=== PATIENT | female | born 1960 | race Caucasian/White ===

== ENCOUNTER 2020-12-14 17:02 | Outpatient (CLI) | payer OTHER, SELFPAY ==
--- NOTE | ~2020-12-14 | MM_ITS ---
EXAMINATION: MM screening [facility] BI w trang HISTORY: Screening mammogram TECHNIQUE: Craniocaudal and mediolateral oblique 3-D tomosynthesis images were obtained and synthetic 2-D images were generated. CAD analysis was submitted and interpreted. COMPARISON: 08/13/2018, 04/19/2017, 03/02/2016 BREAST PARENCHYMAL COMPOSITION: The breasts are almost entirely fatty. FINDINGS: Scattered benign-appearing calcifications are present. There is no evidence of suspicious m ass, calcification, or architectural distortion to suggest malignancy in either breast. There has bee n no suspicious interval change. IMPRESSION: 1. No mammographic evidence of malignancy. 2. Recommend routine screening mammography in one year. BI-RADS Category 2: Benign finding(s). Reviewed, dictated and finalized at location A.
== END 2020-12-14 17:03 | disposition home or self-care (01) ==
PROVIDERS: PCP Family Medicine Adolescent Medicine; Visit Provider Family Medicine Adolescent Medicine
DX: Z12.31 Encounter for screening mammogram for malignant neoplasm of breast (principal)
CPT/HCPCS: 77063; 77067

== ENCOUNTER → 2021-02-24 09:06 | Outpatient (CLI) | payer OTHER, SELFPAY ==
[2021-02-24 20:00] LABS: SARS-CoV-2 RNA PCR Negative
== END ==
PROVIDERS: PCP Family Medicine Adolescent Medicine; Visit Provider Physician Assistant
DX: R68.89 Other general symptoms and signs (principal); Z20.822 Contact with and (suspected) exposure to COVID-19
CPT/HCPCS: C9803; U0003; U0005

== ENCOUNTER → 2021-04-14 02:37 | Outpatient (CLI) | payer OTHER, SELFPAY ==
[2021-04-14 18:08] LABS: SARS-CoV-2 RNA PCR Negative
== END ==
PROVIDERS: PCP Family Medicine Adolescent Medicine; Visit Provider Family Medicine Adolescent Medicine
DX: Z20.822 Contact with and (suspected) exposure to COVID-19 (principal)
CPT/HCPCS: C9803; U0003; U0005

== ENCOUNTER → 2022-02-01 12:23 | Outpatient (CLI) | payer OTHER, SELFPAY ==
--- NOTE | ~2022-02-01 | XR_ITS ---
EXAMINATION: XR wrist RT w scaphoid DATE: 02/01/2022 12:39 INDICATION: Radial sided right wrist pain post fall 2 weeks prior. TECHNIQUE: Posteroanterior, ulnar deviation, navicular, oblique, and lateral views of the right wrist were obtained. COMPARISON: none FINDINGS: There is mildly impacted intra-articular fracture involving the dorsal aspect of the radial styloid p rocess with 1-2 mm lucent fracture gap and 1 mm incongruity seen along the articular surface on the l ateral projection. Otherwise normal alignment with no other fractures identified. Specifically no sca phoid fracture. Mild osteoarthritis at the radiocarpal first carpometacarpal and a few of the metacar pophalangeal joints. IMPRESSION: 1. Mildly impacted intra-articular fracture involving the dorsal aspect of the radial styloid process . Reviewed, dictated and finalized at location A. IMPRESSION: 1. Mildly impacted intra-articular fracture involving the dorsal aspect of the radial styloid process.
== END ==
PROVIDERS: PCP Family Medicine Adolescent Medicine; Visit Provider Family Medicine Adolescent Medicine
DX: S52.511A Displaced fracture of right radial styloid process, initial encounter for closed fracture (principal); M19.041 Primary osteoarthritis, right hand; M19.031 Primary osteoarthritis, right wrist
CPT/HCPCS: 73110

== ENCOUNTER → 2022-03-10 09:26 | Outpatient (CLI) | payer OTHER, SELFPAY ==
--- NOTE | ~2022-03-10 | XR_ITS ---
EXAMINATION: XR wrist RT 2V INDICATION: Right wrist fracture follow-up TECHNIQUE: Two views of the right wrist are obtained. COMPARISON: 02/01/2022 FINDINGS: The previously described oblique fracture of the radial styloid process is again seen. Ther e is increased calcified callus at the fracture site and the fracture is less visible than on the com parison examination. No additional healing fracture is identified. There is mild osteoarthritis of th e triscaphe and first carpometacarpal joints. Soft tissue swelling has improved. IMPRESSION: 1. Radial styloid process fracture with routine healing. Reviewed, dictated and finalized at location B.
== END ==
PROVIDERS: PCP Family Medicine Adolescent Medicine; Visit Provider Family Medicine Adolescent Medicine
DX: S52.511D Displaced fracture of right radial styloid process, subsequent encounter for closed fracture with routine healing (principal)
CPT/HCPCS: 73100

== ENCOUNTER → 2023-06-14 14:15 | Outpatient (CLI) | payer OTHER, SELFPAY ==
--- NOTE | ~2023-06-14 | MR_ITS ---
EXAMINATION: MR lumbar spine wo con DATE: 06/14/2023 15:12 INDICATION: Worsening bilateral sciatica. TECHNIQUE: Magnetic resonance imaging (MRI) of the lumbar spine was performed without intravenous con trast. COMPARISON: Lumbar spine MRI 06/19/2018 FINDINGS: L5 is a transitional segment. There is 8 mm anterolisthesis of L4 on L5 and 4 mm anterolist hesis of L5 on S1. There are chronic bilateral L4 pars defects. There are chronic compression fractur es of L5 and S1 with 2/5 and less than 1/5 loss of height, respectively. There is mildly decreased di sc height at L2-L3 and L3-L4. There is severely decreased disc height at L4-L5 and L5-S1. The distal spinal cord signal intensity is normal. The conus medullaris is at L1-L2. The following disc levels a re specifically discussed: L1-L2: The disc does not extend beyond the endplate margin. There is mild bilateral facet joint osteo arthritis. There is no neural foraminal stenosis. There is no central canal stenosis. L2-L3: The disc is bulging and has an annular fissure. There is severe bilateral facet joint osteoart hritis. There is mild bilateral neural foraminal stenosis. There is mild central canal stenosis. L3-L4: The disc is bulging. There is severe bilateral facet joint osteoarthritis. There is mild later al neural foraminal stenosis. There is mild central canal stenosis. L4-L5: The disc does not extend beyond the endplate margin. There is moderate bilateral facet joint o steoarthritis. There is moderate bilateral neural foraminal stenosis. There is mild central canal payam nosis. L5-S1: The disc does not extend beyond the endplate margin. There is moderate bilateral facet joint o steoarthritis. There is mild bilateral neural foraminal stenosis. There is no central canal stenosis. IMPRESSION: 1. Chronic bilateral L4 pars defects with grade 2 anterolisthesis of L4 on L5, stable from 06/19/2018 . 2. Severe lumbar spondylosis, mildly worsened from 06/19/2018. Reviewed, dictated and finalized at location A. FITTER IMPRESSION: 1. Chronic bilateral L4 pars defects with grade 2 anterolisthesis of L4 on L5, stable from 06/19/2018. 2. Severe lumbar spondylosis, mildly worsened from 06/19/2018.
== END ==
PROVIDERS: PCP Family Medicine Adolescent Medicine; Visit Provider Family Medicine Adolescent Medicine
DX: M43.06 Spondylolysis, lumbar region (principal); M54.32 Sciatica, left side; M54.31 Sciatica, right side
CPT/HCPCS: 72148

== ENCOUNTER 2024-10-24 14:46 | Outpatient (CLI) | payer MEDICARE, OTHER, SELFPAY ==
--- NOTE | ~2024-10-24 | MM_ITS ---
EXAMINATION: MM screening shubham BI w trang HISTORY: Screening TECHNIQUE: Craniocaudal and mediolateral oblique 3-D tomosynthesis images were obtained and synthetic 2-D images were generated. CAD analysis was submitted and interpreted. COMPARISON: Comparison to multiple prior studies sequentially, with oldest reviewed study dated 02/26. BREAST PARENCHYMAL COMPOSITION: Not dense: There are scattered areas of fibroglandular density. FINDINGS: There is no evidence of suspicious mass, calcification, or architectural distortion to sugg est malignancy in either breast. There has been no suspicious interval change. IMPRESSION: 1. No mammographic evidence of malignancy. 2. Recommend routine screening mammography in one year. BI-RADS Category 1: Negative Reviewed, dictated and finalized at location A.
--- OUTSIDE RECORDS SUMMARY | 2024-10-24 14:52 | XMS_ITS | Referral Summary ---
Author Organization [facility] Address [address] [facility] [place] [address] Care Team Providers Care Freight Checker Name Role Phone Roberto Majano MD Primary Care Prov ider Mickie Munroe MD Unavailable [phone] Tj Galicia DO Unavailable [phone] Salina Hassan Unavailable [phone] Encounters Date Type Department Care Team Description 09/24/2024 8:48 AM CDT - 09/24/2024 11:59 PM CDT Hospital Encounter [facility] Cardiac Testing [address] [place] [id number] Nonrheumatic aortic (valve) stenosis Discharge Disposition: Discharge to home or self care 09/24/2024 7:33 AM CDT - 09/24/2024 11:59 PM CDT Hospital Encounter [facility] MRI [facility] [place] [address] Spinal stenosis of cervical region; Spinal stenosis of lumbar region, unspecified whether neurogenic claudication present; Osteopenia, unspecified location Discharge Disposition: Discharge to home or self care 09/16/2024 3:15 PM CDT Telemedicine [facility] Neurosurgery [facility] Medical [facility] Building [address] [place] [address] Aristeo Cordova DO Obesity (BMI 30-39.9) (Primary Dx); Spinal stenosis of cervical region; Spinal stenosis of lumbar region, unspecified whether neurogenic claudication present 09/10/2024 3:40 PM CDT - 09/10/2024 11:59 PM CDT Hospital Encounter [facility] 1 [facility] [address] [facility] [address] [place] [address] Spinal stenosis of cervical region; Spinal stenosis of lumbar region, unspecified whether neurogenic claudication present; Osteopenia, unspecified location Discharge Disposition: Discharge to home or self care 08/25/2024 3:30 PM PAPER SAMPLE CLERK Therapy [facility] OP Physical Therapy [address] [facility] [address] [place] [address] Spinal stenosis of cervical region; Spinal stenosis of lumbar region, unspecified whether neurogenic claudication present; Osteopenia, unspecified location 08/14/2024 Orders Only [facility] Minimally Invasive Surgery [address] [facility] Medical [facility] Building [address] [place] [id number] Aristeo Hope MD 08/14/2024 [facility] Minimally Invasive Surgery [address] [place] [address] [facility] 12th Floor, [place] [address] Aristeo Hope MD Med Refill from Last 3 Months Allergies Active Allergy Reactions Criticality Noted Date Comments Morphine Hives,Swelling,Rash Medium Tolerates oxycodone and hydromorphone Penicillins Hives,Swelling,Rash Medium Medications busPIRone (BUSPAR) 15 mg tabletIndications :Generalized Anxiety Disorder Take 1 tablet (15 mg total) by mouth 2 (two) times a day 8am and 8pm Active escitalopram (LEXAPRO) 20 mg tabletIndications :Anxiety with Depression Take 1 tablet (20 mg total) by mouth every morning 8am Active miconazole 2 % powder Apply topically 2 (two) times a day 70 g 023 Active Additional Information Patient taking differently: 1 ApplicationtopicalAs needed, skin yeast infections, Informant: Self, Reported on 01/17/2024 ergocalciferol (VITAMIN D) 50,000 unit capsule Take 1 capsule (50,000 Units total) by mouth once a week 4 capsule 023 Active Additional Information Patient taking differently:50,000 Units oral Weekly,On Sundays, Indications: Vitamin D Deficiency, Informant: Self, Reported on 01/17/2024 albuterol HFA (PROVENTIL HFA,VENTOLIN HFA,PROAIR HFA) 90 mcg/actuation inhaler Inhale 2 puffs every 6 (six) hours as needed for wheezing or shortness of breath 023 Active methocarbamoL (ROBAXIN) 500 mg tabletIndications :Muscle Spasm Take 2 tablets (1,000 mg total) by mouth 4 (four) times a day 8am, 2pm, 8pm, 2am 023 Active magnesium oxide (MAG-OX) 400 mg (241.3 mg elemental magnesium) tablet Take 1 tablet (400 mg total) by mouth 2 (two) times a day 60 tablet 1 023 Active Additional Information Patient taking differently:400 mg oral 2 times daily,Indications: For supplement, Informant: Self, Reported on 01/17/2024 naloxone (NARCAN) 4 mg/actuation spray,non-aerosol Administer 1 spray into affected nostril(s) as needed for opioid reversal Call 911. Administer a single spray in one nostril. Repeat every 3 minutes as needed if no or minimal response. 2 each 2 023 Active traZODone (DESYREL) 100 mg tablet Take 0.5 tablets (50 mg total) by mouth nightly as needed for sleep 023 Active Klor-Con M20 20 mEq CR tablet TAKE 1 TABLET BY MOUTH 2 TIMES A DAY. 180 tablet 023 Active Additional Information Patient taking differently: 20 mEq oral 2 times daily PRN, when taking Lasix to prevent hypokalemia, Informant: Self, Reported on 01/17/2024 multivitamin capsuleIndication s:Vitamin Deficiency Prevention Take 1 capsule by mouth daily after lunch At 1600 Active LORazepam (ATIVAN) 0.5 mg tablet Take 1 tablet (0.5 mg total) by mouth nightly as needed for anxiety 7 tablet 023 Active pregabalin (LYRICA) 100 mg capsuleIndication s:Diabetic Peripheral Neuropathy Take 1 capsule (100 mg total) by mouth 2 (two) times a day for 7 days 14 capsule 023 Active Additional Information Patient taking differently:100 mg oral 2 times daily,Indications: Neuropathic Pain Associated with Spinal Cord Injury, Informant: Self, Reported on 01/17/2024 acetaminophen (TYLENOL) 500 mg tablet Take 1 tablet (500 mg total) by mouth every 6 (six) hours as needed for pain Active fluticasone propionate (FLONASE) 50 mcg/actuation nasal spray Administer 1 spray into each nostril nightly as needed for rhinitis Active docusate sodium (COLACE) 100 mg capsule Take 1 capsule (100 mg total) by mouth 2 (two) times a day as needed for constipation Active levothyroxine (SYNTHROID) 50 mcg tablet Take 1 tablet (50 mcg total) by mouth 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 30 tablet 023 Active Additional Information Patient taking differently:50 mcg oral Daily (early AM),Indications: hypothyroidism, Informant: Self, Reported on 01/17/2024 oxyCODONE (ROXICODONE) 15 mg immediate release tabletIndications :S/P total left hip arthroplasty Take 1 tablet (15 mg total) by mouth every 4 (four) hours as needed for pain [address] (PROTONIX) 40 mg EC tabletIndications :Treatment of Non-Bleeding Gastric Disorder,GERD Take 1 tablet (40 mg total) by mouth 2 (two) times a day 023 Active clindamycin (CLEOCIN) 300 mg capsule Take 2 tablets by mouth 1 hour prior to dental procedure 4 capsule 1 023 Active clobetasoL (TEMOVATE) 0.05 % creamIndications: eczema Apply 1 Application topically 2 (two) times a day Active ipratropium-albut Shayan (DUO-NEB) 0.5-2.5 mg/3 mL nebulizer solutionIndicatio ns:Chronic Obstructive Pulmonary Disease with Bronchospasms,dis order of respiratory system Take 3 mL by nebulization 4 (four) times a day 180 mL 11 024 Active Additional Information Patient taking differently:3 mL nebulizationAs needed, wheezing, shortness of breath, Indications: Chronic Obstructive Pulmonary Disease with Bronchospasms, disorder of respiratory system, Informant: Self, Reported on 01/17/2024 ondansetron ODT (ZOFRAN-ODT) 4 mg disintegrating tablet Take 1 tablet (4 mg total) by mouth every 12 (twelve) hours as needed for nausea or vomiting Active promethazine (PHENERGAN) 25 mg suppository Insert 1 suppository (25 mg total) into the rectum every 6 (six) hours as needed for nausea Active aspirin 81 mg enteric coated tabletIndications :prevention of thrombosis Take 1 tablet (81 mg total) by mouth 2 (two) times a day Active furosemide (LASIX) 80 mg tablet TAKE 1 TABLET BY MOUTH TWICE A DAY 180 tablet Active cyanocobalamin (Vitamin B-12) 1,000 mcg/mL injection Inject 1 mL (1,000 mcg total) into the muscle as instructed every 14 (fourteen) days and of month 6 mL 3 Active syringe with needle 3 mL 23 x 1 syringe 1 Needle every 14 (fourteen) days 2 each Active Active Problems Problem Noted Date Diagnosed Date Biliary colic 12/31/2023 Chronic nausea 12/04/2023 Chronic obstructive pulmonary disease with bronc hospasm 07/31/2023 Pneumonia of left lower lobe due to infectious o rganism 07/26/2023 S/P total left hip arthroplasty 01/05/2023 Assessment & Plan (02/08/2023 11:05 AM CDT): Surgical site is well approximated and appears to be healing well without complication or signs of infection. Patient is still experiencing pain in her hip and groin, however she is improving compared with last visit. She is following up with a neurosurgeon for her back at the end of the month. Encouraged the patient to continue walking with the walker. For antibiotic prophylaxis for future dental procedures, the patient is allergic to penicillins. Prescribed clindamycin. Patient will follow up with Dr. Galicia in 4 weeks for wound check, assessment of pain improvement, and x-rays. Patient expressed understanding and agreement to the plan. Assessment & Plan (01/31/2023 2:54 PM CDT): Discussed with patient that pain is still to be expected only 2 weeks out from surgery. Also discussed that some of her pain could be coming from her back as she feels most of it in the posterior hip and down the back of the leg. We will refill her pain medication today. Discussed with the patient to remain 50% weight- bearing on the left leg and to ambulate with a walker for at least 4 more weeks. We will hold off on resuming outpatient physical therapy for now as patient feels it aggravates her hip. We will revisit the need for outpatient physical therapy at a later date. Patient was given 4x4 gauze packs to place on the opening of the proximal surgical site with directions to replace them as needed to keep the surgical site dry. Also discussed not showering or getting the surgical site wet. Went over warning signs including if the patient develops fever, chills, or purulent drainage from the surgical site. She will follow up with me in 1 week for wound check. Patient and her expressed understanding and agreement with the plan. Hyponatremia 01/05/2023 Primary hypertension 01/05/2023 Primary osteoarthritis of left hip 12/08/2022 S/P total right hip arthroplasty 10/24/2022 Nonrheumatic aortic valve stenosis 09/28/2022 Chronic heart failure with preserved ejection fr action 09/28/2022 Encounter for monitoring diuretic therapy 2022 PSVT (paroxysmal supraventricular tachycardia) 0 09/28/2022 Primary osteoarthritis of right hip 09/11/2022 Overview (09/11/2022): Added automatically from request for surgery [id number] Chronic midline back pain, unspecified back loca tion 08/27/2022 Acquired hypothyroidism 07/22/2022 Macrocytic anemia 07/22/2022 Abnormal weight gain 07/22/2022 Class 3 severe obesity due t o excess calories with body mass index (BMI) of 40.0 to 44.9 in adult 07/22/2022 Anxiety and depression 07/22/2022 Avascular necrosis of bones of both hips 023 Edema of both legs 07/16/2022 Chronic pain syndrome 07/16/2022 Radicular pain 07/11/2022 Assessment & Plan (07/12/2022 11:14 AM PAPER SAMPLE CLERK): Overall controlled with above pain regimen. Assessment & Plan (07/11/2022 6:11 AM PAPER SAMPLE CLERK): Symptoms fairly controlled with pregabalin 150 mg b.i.d., oxycodone, methocarbamol. Primary insomnia 07/11/2022 Assessment & Plan (07/11/2022 6:14 AM PAPER SAMPLE CLERK): Continue trazodone nighttime, maintain sleep hygiene. Edema of both legs 07/11/2022 Assessment & Plan (07/12/2022 11:14 AM PAPER SAMPLE CLERK): Encourage lower extremity elevation and increasing ambulation. We will complete an additional 5 days of Lasix 20 mg daily Assessment & Plan (07/11/2022 6:14 AM PAPER SAMPLE CLERK): Patient complains of lower extremity edema recently. Will start on Lasix 40 mg daily x5 days, encourage leg elevation, will order Jeferson wrap History of Radha-en-Y gastric bypass 07/11/2022 Assessment & Plan (07/12/2022 11:11 AM PAPER SAMPLE CLERK): Continue vitamin supplementation with vitamin-D, vitamin B12. Continue omeprazole Assessment & Plan (07/11/2022 6:16 AM PAPER SAMPLE CLERK): Patient has a history of RYGB. Continue vitamin B12, omeprazole 20 mg b.i.d. Spinal stenosis of lumbar region at multiple lev els 07/01/2022 Assessment & Plan (07/12/2022 11:13 AM PAPER SAMPLE CLERK): Overall back pain has been stable, patient is participating in therapy. [place] stable for discharge on 07/14/2022. Follow-up with Neurosurgery as scheduled. Continue pain control with p.r.n. oxycodone, topical Voltaren, Lidoderm, scheduled methocarbamol, scheduled Lyrica. We will arrange home health PT/OT Assessment & Plan (07/11/2022 6:10 AM PAPER SAMPLE CLERK): Patient presented due to worsening low back pain due to fall. Is status post LESI at L5/SI (severe stenosis at L4-L5) on 07/04 and L4/L5 selective nerve root injections on 07/05. Patient need with Neurosurgery in 1-2 week after discharge. Will continue pain management with oxycodone 15 mg Q 4 p.r.n., Voltaren gel, lidocaine patch, methocarbamol 1000 mg t.i.d.. Continue PT/OT. Spinal stenosis of lumbar region and L4 Pars def ect 06/29/2022 Assessment & Plan (07/05/2022 8:49 AM PAPER SAMPLE CLERK): Patient with chronic pain p/w acute on chronic LBP in the setting of recent fall. Pain from a combination spinal stenosis in the L spine and L4 pars interarticularis defect. - Home regimen: Gravity 10-325 Q6 - Pain regimen: Oxycodone 15 q4 scheduled + IV dilaudid 0.3 Q4h PRN - Cont Robaxin 1000 mg TID + Lyrica 150 BID scheduled - Received medrol doses pack in ED, will d/c since has no clear role. Appreciate pain recs. - Pain management following: - LESI at L5/SI (severe stenosis at L4-L5) on 07/04 - Anticipated on L4/L5 selective nerve root injections today - Add lidocaine patch (back) and topical Volaren (knees) - Consulted spine surgery service, C-spine MRI with advanced degenerative disease and mod C5-C6 stenosis which they say can be managed outpatient. Stable disease on L-spine flexion/extension films. Plan for follow up in in clinic in 1-2 weeks. -PT/OT recommended SNF. Will need to be re-evaluated after epidural injection - Will need to wean from IV pain medication prior to discharge to SNF Assessment & Plan (07/03/2022 10:05 AM PAPER SAMPLE CLERK): Patient with chronic pain p/w acute on chronic LBP in the setting of recent fall. Pain from a combination spinal stenosis in the L spine and L4 pars interarticularis defect. -Home regimen: Gravity 10-325 Q6 -Pain regimen: Oxycodone 15 q4 prn + IV dilaudid 0.3 Q4h PRN -> will schedule oxycodone based on symptoms getting [id number] when dose is late -Cont Robaxin -cont Lyrica 150 -received medrol doses pack in ED, will d/c since has no clear role. Appreciate pain recs. -Consulted pain management, tentative plan for epidural injection on Sunday. -Consulted spine surgery service: I d/w them today. C-spine MRI with advanced degenerative disease and mod C5-C6 stenosis which they say can be managed outpatient. Ordered L-spine flexion/extension films today. -PT/OT recommended SNF. Will need to be re-evaluated after epidural injection. Assessment & Plan (06/29/2022 4:22 PM PAPER SAMPLE CLERK): Patient with chronic pain p/w acute on chronic LBP in the setting of recent fall. Suspect lumbar radiculopathy likely 2/2 disc herniation -Home regimen: Gravity 10-325 Q6 -Follows with [facility] management in [place] -Given recent fall, obtain L spine MRI -Increase to Oxycodone 10 + IV dilaudid PRN -Cont Robaxin -Add Lyrica 75. Increase as tolerated -Can continue medrol dose pack as start in ED however benefit uncertain -Consider pain management consult pending additional imaging -PT/OT Murmur, cardiac 06/29/2022 Assessment & Plan (07/04/2022 10:05 AM PAPER SAMPLE CLERK): Murmur heard on exam -Patient denies chest pain, shortness of breath, syncope -TTE showing mild . This should be followed by the patient's pcp as an outpatient Assessment & Plan (07/01/2022 12:06 PM PAPER SAMPLE CLERK): Murmur heard on exam -Patient denies chest pain, shortness of breath, syncope -TTE showing mild . This should be followed by the patient's pcp as an outpatient Assessment & Plan (06/29/2022 4:19 PM PAPER SAMPLE CLERK): Murmur heard on exam -Patient denies chest pain, shortness of breath, syncope -TTE to further evaluate Anxiety and depression 06/29/2022 Assessment & Plan (07/12/2022 11:13 AM PAPER SAMPLE CLERK): Mood has been overall stable, continue BuSpar, Lexapro, Ativan p.r.n., trazodone. Assessment & Plan (07/11/2022 6:13 AM PAPER SAMPLE CLERK): Contributing factor chronic back/hip pain. Mood controlled with better pain level. Continue BuSpar 15 mg b.i.d., Lexapro 20 mg, Ativan 0.5 mg p.r.n., trazodone Assessment & Plan (07/05/2022 8:47 AM PAPER SAMPLE CLERK): - Cont home Buspirone 15 mg BID + Lexapro 20 daily Assessment & Plan (06/30/2022 12:29 PM PAPER SAMPLE CLERK): -Cont home Buspirone + Lexapro 20 Assessment & Plan (06/29/2022 4:20 PM PAPER SAMPLE CLERK): -Cont home Buspirone + Lexapro 20 Dysphagia 02/03/2020 Overview (02/03/2020): Added automatically from request for surgery [id number] Thiamin deficiency 11/08/2015 Cobalamin deficiency 11/08/2015 Zinc deficiency 11/08/2015 Malabsorption 10/07/2015 Intra-abdominal abscess 01/07/2015 Stenosis of stomach 01/07/2015 Anastomotic leak of stomach 01/07/2015 Edema Pulmonary hypertension Acute heart failure with preserved ejection frac tion Resolved Problems Problem Noted Date Diagnosed Date Resolved Date Nausea with vomiting 12/10/2014 022 Immunizations Immunization Administration Dates Next Due Influenza, Quadrivalent, Spl it, Preservative Free, Intramuscular 03/08/2023,03/25/2021,04/04/2020 Influenza, Unspecified 04/01/2016 Pneumococcal Polysaccharide PPV23 01/03/2021 RSV Vaccine, Pref, Recombina nt, Subunit, Adjuvanted, PF, IM (Arexvy) 04/26/2023 Td, adsorbed 10/21/2021 ZOSTER Recombinant 03/25/2021,01/03/2021 Social History Tobacco Use Types Packs/Day Years Used Date Smoking Tobacco: Former Cigarettes Q uit: 1991 Smokeless Tobacco: Never Tobacco Cessation:Counseling Given: Not Answered Alcohol Use Standard Drinks/Week Comments No 0 (1 standard drink = 0.6 oz pur e alcohol) [facility] Utilities Answer Date Recorded In the past 12 months has th e electric, gas, oil, or water company threatened to shut off services in your home? No 07/27/2023 Social Connection and Isolat ion Panel [NHANES] Answer Date Recorded In a typical week, how many times do you talk on the phone with family, friends, or neighbors? More than three times a week 07/27/2023 How often do you get togethe r with friends or relatives? More than three times a week 07/27/2023 How often do you attend chur ch or anabaptist services? 1 to 4 times per year 07/27/2023 Do you belong to any clubs o r organizations such as orthodoxy groups, unions, fraternal or athletic groups, or school groups? No 07/27/2023 How often do you attend meet ings of the clubs or organizations you belong to? Never 07/27/2023 Are you , , di vorced, , never , or living with a partner? 07/27/2023 AUDIT-C Answer Date Recorded Q1: How often do you have a drink containing alcohol? 4 or more times a week 07/15/2024 Q2: How many drinks containi ng alcohol do you have on a typical day when you are drinking? 7 to 9 Q3: How often do you have si x or more drinks on one occasion? Never 07/15/2024 Overall Financial Resource Strain (CARDIA) Answe r Date Recorded How hard is it for you to pa y for the very basics like food, housing, medical care, and heating? Not hard at all 07/27/2023 Hunger Vital Sign Answer Date Recorded Within the past 12 months, y ou worried that your food would run out before you got the money to buy more. Never true 07/27/19 24 Within the past 12 months, t he food you bought just didn't last and you didn't have money to get more. Never true 07/27/2023 PRAPARE - Transportation Answer Date Re corded In the past 12 months, has l ack of transportation kept you from medical appointments or from getting medications? No 07/03 In the past 12 months, has l ack of transportation kept you from meetings, work, or from getting things needed for daily living? No 07/27/2023 Housing Stability Vital Sign Answer Bryan e Recorded In the last 12 months, was t here a time when you were not able to pay the mortgage or rent on time? No 07/27/2023 In the last 12 months, how many places have you lived? 1 07/27/2023 In the last 12 months, was t here a time when you did not have a steady place to sleep or slept in a senior living (including now)? No 07/27/2023 Personal Safety Answer Date Recorded Have you ever been in or are you currently in a harmful physical or emotional relationship or is someone making you feel afraid or unsafe? Denies 01/28/2024 Comments No Sex and Gender Information Value Date Recorded Sex Assigned at Not on file Legal Sex Female 12:50 AM PAPER SAMPLE CLERK Gender Identity Not on file Sexual Orientation Not on file Last Filed Vital Signs Vital Sign Reading Time Taken Comments Blood Pressure 134/82 01/30/2024 3:10 PM CDT Pulse 71 01/30/2024 3:10 PM CDT Temperature 36.6 C (97.9 F) 01/30/2024 3:10 PM CDT Respiratory Rate 18 01/30/2024 3:10 PM CDT Oxygen Saturation 96% 01/30/2024 3:10 PM CDT Inhaled Oxygen Concentration - - Weight 99.3 kg (219 lb) 07/15/2024 2:30 PM PAPER SAMPLE CLERK Height 165.1 cm (5' 5 ) 07/15/2024 2:30 PM PAPER SAMPLE CLERK Body Mass Index 36.44 07/15/2024 2:30 PM PAPER SAMPLE CLERK Plan of Treatment Not on file Medical Devices Implanted Type Area Auto Winder Device Identifier Shelf Expiration Date Model / Serial / Lot Arthroplasty Bilater al: Knee Description:Joseph TKR [employer] [place] 52mm Sector Hip Shell Acetabular Gription Sterile Latex Free [id number] - [id number] Implanted:Qty: 1 on 10/24/2022 by Tj Galicia DO at [facility] Right: Hip [employer] [id number] 07/01/2032 [id number] / / [id number] [employer] [place] 6.5mm 30mm Acetabular Cancellous Screw Bone Revision 1217-30-500 - [id number] Implanted:Qty: 1 on 10/24/2022 by Tj Galicia DO at [facility] Right: Hip [employer] [id number] 07/01/2032 / / [id number] [employer] Liner Aetabular Cup Hip [place] Dm 52 45 [id number] - [id number] Implanted:Qty: 1 on 10/24/2022 by Tj Galicia DO at [facility] Right: Hip [employer] [id number] 07/01/2032 [id number] / / [id number] [employer] Articul/Bishnu 22.225mm Cementless Hip +7mm 06/14 Standard Taper Latex Free [id number] - [id number] Implanted:Qty: 1 on 10/24/2022 by Tj Galicia DO at [facility] Right: Hip [employer] [id number] 10/29/2025 [id number] / / [id number] [employer] Act[place] 105mm Collar Hip 5 Standard Offset Stem Femoral 1010-11-050 - [id number] Implanted:Qty: 1 on 10/24/2022 by Tj Galicia DO at [facility] Right: Hip [employer] [id number] 12/30/2031 101--050 / / [id number] [employer] Liner Acetabular Hip Bi [place] 36d76rg Polyethylene [id number] - [id number] Implanted:Qty: 1 on 10/24/2022 by Tj Galicia DO at [facility] Right: Hip [employer] 10/29/2025 [id number] / / [id number] [employer] [place] 6.5mm 25mm Acetabular Cancellous Screw Bone Sterile 12101-23- - [id number] Implanted:Qty: 1 on 01/10/2023 by Tj Galicia DO at [facility] Left: Hip [employer] [id number] 07/01/2032 / / [id number] [employer] [place] 6.5mm 40mm Acetabular Cancellous Screw Bone Sterile [id number] - [id number] Implanted:Qty: 1 on 01/10/2023 by Tj Galicia DO at [facility] Left: Hip [employer] [id number] 07/01/2032 [id number] / / [id number] [employer] Liner Aetabular Cup Hip [place] Dm 52 45 [id number] - [id number] Implanted:Qty: 1 on 01/10/2023 by Tj Galicia DO at [facility] Left: Hip [employer] [id number] 07/01/2032 [id number] / / [id number] [employer] [place] 105mm Collar Hip 5 Standard Offset Stem Femoral 1010-11-050 - [id number] Implanted:Qty: 1 on 01/10/2023 by Tj Galicia DO at [facility] Left: Hip [employer] [id number] 12/30/2031 1010-11-050 / / [id number] [employer] Articul/Bishnu 22.225mm Cementless Hip +4mm 06/14 Standard Taper Latex Free [id number] - [id number] Implanted:Qty: 1 on 01/10/2023 by Tj Galicia DO at [facility] Left: Hip [employer] [id number] 05/01/2027 [id number] / / [id number] [employer] Liner Acetabular Hip Bi Mentum 34p06vz Polyethylene [id number] - [id number] Implanted:Qty: 1 on 01/10/2023 by Tj Galicia DO at [facility] Left: Hip [employer] 07/01/2025 [id number] / / [id number] [employer] [place] 52mm Sector Hip Shell Acetabular Gription Sterile Latex Free [id number] - [id number] Implanted:Qty: 1 on 01/10/2023 by Tj Galicia DO at [facility] Left: Hip [employer] [id number] 09/29/2032 [id number] / / [id number] Explanted Type Area Auto Winder Device Identifier Shelf Expiration Date Model / Serial / Lot [employer] [place] 6.5mm 25mm Acetabular Cancellous Screw Bone Sterile 1217-25-500 - [id number] Explanted:Qty: 1 on 10/24/2022 at [facility] Right: Hip [employer] [id number] 07/01/2032 1217-25-5 00 / / [id number] Procedures Procedure Name Priority Date/Time Associated Diagnosis Comments TRANSTHORACIC ECHO (TTE) COMPLETE W DOPPLER/CF WO CONTRAST Routine 09/24/2024 9:55 AM CDT Nonrheumatic aortic (valve) stenosis MRI LUMBAR SPINE WO CONTRAST Schedule Routine, Read Routine (OP Routine) 09/24/2024 8:22 AM CDT Spinal stenosis of cervical region Spinal stenosis of lumbar region, unspecified whether neurogenic claudication present Osteopenia, unspecified location DEXA AXIAL SKELETON BONE DENSITY 1 OR MORE SITES Schedule Routine, Read Routine (OP Routine) 09/10/2024 3:58 PM CDT Spinal stenosis of cervical region Spinal stenosis of lumbar region, unspecified whether neurogenic claudication present Osteopenia, unspecified location from Last 3 Months Results * TRANSTHORACIC ECHO (TTE) COMPLETE W DOPPLER/CF WO CONTRAST (09/24/2024 9:55 AM CDT) Anatomical Region Laterality Modality Ultrasound 09/24/2024 8:59 AM CDT Narrative 09/24/2024 11:53 AM CDT Transthoracic Echocardiographic Report Patient Name: ANNETTE HICKEY Dale : 1960 (64y 1m) Gender: F Study Date: 09/24/2024 08:59:07 AM Ht(Inch): 65 Wt(Lb): 219 BSA: 2.13 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 INDICATIONS: I35.0 Nonrheumatic aortic (valve) stenosis. FINDINGS: Left Ventricle: Normal left ventricular cavity size. Normal Left ventricular wall thickness. The Ejection Fraction (Briggs's) is measured at 71 %. Diastolic Function E to A reversal Suggestive of abnormal relaxation during early diastole, E to E' ratio is 8-15 which is in the indeterminate zone and left ventricular diastolic parameters are consistent with Grade I diastolic dysfunction (normal LA pressure). No Thrombus noted in Left Ventricle. Regional Wall Motion: There are no regional wall motion abnormalities. Right Ventricle: Normal right ventricular size. Normal right ventricular systolic function. Left Atrium: Mildly dilated left atrium. Right Atrium: The right atrium is normal in size. Atrial Septum: The interatrial septum is normal in appearance. Mitral Valve: Normal mitral valve leaflet structure. Mild mitral annular calcification. No mitral regurgitation seen. No mitral valve stenosis. Aortic Valve: The aortic cusps are moderately sclerosed in appearance. Trace aortic valve regurgitation. Mild aortic valve stenosis. The mean transaortic gradient is 16 mmHg. The aortic valve area by the continuity equation (using Peak Pilo) is 2.11 cm2. Tricuspid Valve: There is mild tricuspid regurgitation. Normal estimated pulmonary artery systolic pressure. Pulmonic Valve: Pulmonic Valve not well visualized due to poor echo windows. Pericardium: No pericardial effusion. Aorta: Normal aortic root. IVC: IVC is normal in size. The estimated RA pressure is 0-5 mmHg. CONCLUSIONS: 1. The Ejection Fraction (Briggs's) is measured at 71 %. 2. Mild aortic valve stenosis with a peak gradient 33, mean gradient 15, aortic valve area 2.12 cm2. Trace AR. MEASUREMENTS: 2D/MM Value Range Doppler Value LVIDd 2D 5.05 cm [ 3.50 - 5.70 ] AV Peak Pilo 2.93 m/s LVIDs 2D 3.04 cm [ 3.10 - 4.60 ] AV Peak PG 34.34 mmHg IVSd 2D 0.93 cm [ 0.60 - 1.20 ] AV Mean PG 16.00 mmHg LVPWd 2D 0.89 cm [ 0.60 - 1.10 ] AV VTI 44.70 cm LV Thickness Ratio 1.04 LVOT Peak Pilo 1.63 m/s LV Mass 2D 167.34 g LVOT Peak PG 10.63 mmHg LV Mass Index 2D 78.56 g/m2 LVOT Mean PG 6.00 mmHg RWT 0.35 LVOT VTI 29.10 cm EDV Mod BP 67.80 ml [ 46.00 - 106.00 ] LVOT Diam 2.20 cm LV EDV Index 31.83 ml/m2 MANISH VTI 2.47 cm2 ESV Mod BP 19.70 ml [ 14.00 - 42.00 ] MANISH Vmax 2.11 cm2 EF Mod BP 71 % [ 54 - 74 ] LVOT/AV VTI 0.65 - Dimensionless index (DVI) LA Dimension 2D 3.70 cm [ 1.90 - 4.00 ] MV E Peak Pilo 0.98 m/s LA Length 2C 6.02 cm MV A Peak Pilo 1.04 m/s LA Length 4C 6.91 cm MV E/A 0.90 ratio LA Volume BP 81.00 ml MV Decel Time 193.00 msec LA Volume Index 38.03 ml/m2 [ 16.00 - 34.00 ] Med E` Pilo 8.27 cm/sec RV Base Dimen 2D 3.4 cm [ 2.5 - 4.2 ] Lat E` Pilo 12.10 cm/sec TAPSE 3.25 cm [ 1.71 - 5.00 ] Average E/E` 9.62 RA Volume 34.40 ml RV S` 19.70 cm/sec RA Volume Index 16.15 ml/m2 TR Peak Pilo 2.57 m/s IVC Diam 2.52 cm TR Peak PG 26.4 mmHg MANISH Planim 2.06 cm2 PV Peak Pilo 1.56 m/s AoR Diam 2D 3.20 cm [ 2.00 - 3.70 ] PV Peak PG 9.73 mmHg Ao Root Index 1.50 cm/m2 [ 1.00 - 2.00 ] PV Mean PG 6.00 mmHg Asc Ao Diam 2D 3.10 cm RVOT VTI 21.00 Asc Ao Index 1.46 cm/m2 - ATTESTATION: I have reviewed and interpreted the pertinent images and measurements of this study. I attest to the conclusions in the final report that is provided above. DISCLAIMER: The study images and the final report will be retained in the patient chart by the [facility] for the legally required time period. This chart constitutes the legal record of any testing performed. 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 INDICATIONS: I35.0 Nonrheumatic aortic (valve) stenosis. FINDINGS: Left Ventricle: Normal left ventricular cavity size. Normal Leftventricular wall thickness. The Ejection Fraction (Briggs's) is measured at 71 %.Diastolic Function E to A reversal Suggestive of abnormal relaxation during early diastole, E toE' ratio is 8-15 which is in the indeterminate zone and left ventricular diastolicparameters are consistent with Grade I diastolic dysfunction (normal LA pressure). NoThrombus noted in Left Ventricle. Regional Wall Motion: There are no regional wall motion abnormalities. Right Ventricle: Normal right ventricular size. Normal right ventricularsystolic function. Left Atrium: Mildly dilated left atrium. Right Atrium: The right atrium is normal in size. Atrial Septum: The interatrial septum is normal in appearance. Mitral Valve: Normal mitral valve leaflet structure. Mild mitral annularcalcification. No mitral regurgitation seen. No mitral valve stenosis. Aortic Valve: The aortic cusps are moderately sclerosed in appearance.Trace aortic valve regurgitation. Mild aortic valve stenosis. The mean transaortic gradientis 16 mmHg. The aortic valve area by the continuity equation (using Peak Pilo) is 2.11cm2. Tricuspid Valve: There is mild tricuspid regurgitation. Normal estimatedpulmonary artery systolic pressure. Pulmonic Valve: Pulmonic Valve not well visualized due to poor echowindows. Pericardium: No pericardial effusion. Aorta: Normal aortic root. IVC: IVC is normal in size. The estimated RA pressure is 0-5 mmHg. CONCLUSIONS: 1. The Ejection Fraction (Briggs's) is measured at 71 %. 2. Mild aortic valve stenosis with a peak gradient 33, mean gradient 15,aortic valve area 2.12 cm2. Trace AR. MEASUREMENTS: 2D/MM Value Range DopplerValue LVIDd 2D 5.05 cm [ 3.50 - 5.70 ] AV Peak Vel2.93 m/s LVIDs 2D 3.04 cm [ 3.10 - 4.60 ] AV Peak PG34.34 mmHg IVSd 2D 0.93 cm [ 0.60 - 1.20 ] AV Mean PG16.00 mmHg LVPWd 2D 0.89 cm [ 0.60 - 1.10 ] AV VTI44.70 cm LV Thickness Ratio 1.04 LVOT Peak Vel1.63 m/s LV Mass 2D 167.34 g LVOT Peak PG10.63 mmHg LV Mass Index 2D 78.56 g/m2 LVOT Mean PG6.00 mmHg RWT 0.35 LVOT VTI29.10 cm EDV Mod BP 67.80 ml [ 46.00 - 106.00 ] LVOT Diam2.20 cm LV EDV Index 31.83 ml/m2 MANISH VTI2.47 cm2 ESV Mod BP 19.70 ml [ 14.00 - 42.00 ] MANISH Vmax2.11 cm2 EF Mod BP 71 % [ 54 - 74 ] LVOT/AV VTI0.65 - Dimensionless index (DVI) LA Dimension 2D 3.70 cm [ 1.90 - 4.00 ] MV E Peak Vel0.98 m/s LA Length 2C 6.02 cm MV A Peak Vel1.04 m/s LA Length 4C 6.91 cm MV E/A0.90 ratio LA Volume BP 81.00 ml MV Decel Qbhy823.00 msec LA Volume Index 38.03 ml/m2 [ 16.00 - 34.00 ] Med E` Vel8.27 cm/sec RV Base Dimen 2D 3.4 cm [ 2.5 - 4.2 ] Lat E` Vel12.10 cm/sec TAPSE 3.25 cm [ 1.71 - 5.00 ] Average E/E`9.62 RA Volume 34.40 ml RV S`19.70 cm/sec RA Volume Index 16.15 ml/m2 TR Peak Vel2.57 m/s IVC Diam 2.52 cm TR Peak PG26.4 mmHg MANISH Planim 2.06 cm2 PV Peak Vel1.56 m/s AoR Diam 2D 3.20 cm [ 2.00 - 3.70 ] PV Peak PG9.73 mmHg Ao Root Index 1.50 cm/m2 [ 1.00 - 2.00 ] PV Mean PG6.00 mmHg Asc Ao Diam 2D 3.10 cm RVOT VTI21.00 Asc Ao Index1.46 cm/m2 - ATTESTATION: I have reviewed and interpreted the pertinent images and measurements ofthis study. I attest to the conclusions in the final report that is provided above. DISCLAIMER: The study images and the final report will be retained in the patientchart by the [facility] for the legally required time period. This chart constitutesthe legal record of any testing performed. Electronically Signed By: Sultan Mumtaz AREVALO 09/24/2024 11:52:42 AM CDT us Mickie Munroe MD CV ECHO PROCEDURES Final Res ult * MRI Lumbar Spine WO Contrast (09/24/2024 8:22 AM CDT) Anatomical Region Laterality Modality Spine N/A Magnetic Resonan ce 09/24/2024 12:1 4 PM CDT Narrative 09/24/2024 1:28 PM CDT EXAM DESCRIPTION: MRI LUMBAR SPINE WO CONTRAST REASON FOR STUDY: Lumbar radiculopathy, no red flags, no prior management Chronic lower back pain, no surgery. TECHNIQUE: Sagittal and Axial imaging includes T1, T2, STIR sequences. COMPARISON: Lumbar spine MRI 06/30/2022. CT of the abdomen and pelvis dated 11/22/2023. FINDINGS: There is a rudimentary disc at S1-S2. For the purposes of this report the last well-formed disc space is considered L5-S1 which is the same nomenclature as the prior MRI report. Redemonstrated grade 2 anterolisthesis of L4 on L5 with uncovering of the disc and grade 1 anterolisthesis of L5 on S1, unchanged from prior MRI. Redemonstrated L4 bilateral pars interarticularis defects. Severe type 1 Modic changes at L3-L4 and severe type 2 Modic changes at L4-L5. The type 1 Modic changes at L3-L4 have increased from the prior examination. Normal vertebral body heights. The conus medullaris terminates at the level of L1-L2. The distal spinal cord signal intensity is normal. There is severe disc height loss at L4-L5 and L5-S1. L1-L2: Trace disc bulge. There is mild bilateral facet arthropathy. There is no neuroforaminal stenosis. There is no spinal canal stenosis. L2-L3: There is a similar moderate disc bulge. There is moderate bilateral facet arthropathy. Ligamentum flavum infolding has increased from the prior examination. There is mild bilateral neuroforaminal stenosis. There is moderate to severe spinal canal stenosis, slightly increased from prior exam. L3-L4: Interval increase in disc space height loss with increased disc bulge since the prior MRI. There is severe facet arthropathy and ligamentum flavum infolding which appears increased from prior examination. There is a small right synovial cyst which appears contained by the ligamentum flavum. Multiple synovial cysts abutting the spinous process. A small midline dorsal synovial cyst versus flavum cyst has increased in size now measuring 6 mm and this contributes to the spinal canal stenosis. Mild bilateral neural foraminal stenosis. There is severe spinal canal stenosis which is significantly increased from prior exam. L4-L5: Grade 2 anterolisthesis with uncovering of the disc. There is severe bilateral facet arthropathy. There is severe bilateral neuroforaminal stenosis. There is moderate spinal canal stenosis. L5-S1: Trace disc bulge. Moderate facet arthropathy. Moderate right and mild left foraminal stenosis. No significant spinal canal stenosis. No significant soft tissue abnormality of the field of view. IMPRESSION: Since the prior MRI there has been interval increase in degenerative changes at L3-L4 which now demonstrates severe spinal canal stenosis, previously mild. New severe type 1 Modic changes at L3-L4. Redemonstrated grade 2 anterolisthesis of L4 on L5 with severe bilateral foraminal stenosis. THIS IS AN ELECTRONICALLY VERIFIED FINAL REPORT 09/24/2024 1:28 PM - Electronically signed by Poncho Celaya M.D. MM T: Report ID: [id number] Reading Location: [place] [id number] Procedure Note Poncho Celaya MD - 09/24/2024 EXAM DESCRIPTION: MRI LUMBAR SPINE WO CONTRAST REASON FOR STUDY: Lumbar radiculopathy, no red flags, no priormanagement Chronic lower back pain, no surgery. TECHNIQUE: Sagittal and Axial imaging includes T1, T2, STIR sequences. COMPARISON: Lumbar spine MRI 06/30/2022. CT of the abdomen and pelvisdated 11/22/2023. FINDINGS: There is a rudimentary disc at S1-S2. For the purposes of this report the last well-formed disc space is considered L5-S1 which is thesame nomenclature as the prior MRI report. Redemonstrated grade 2 anterolisthesis of L4 on L5 with uncovering of thedisc and grade 1 anterolisthesis of L5 on S1, unchanged from prior MRI. Redemonstrated L4 bilateral pars interarticularis defects. Severe type 1 Modic changes at L3-L4 and severe type 2 Modic changes at L4-L5. The type1 Modic changes at L3-L4 have increased from the prior examination. Normal vertebral body heights. The conus medullaris terminates at thelevel of L1-L2. The distal spinal cord signal intensity is normal. There is severedisc height loss at L4-L5 and L5-S1. L1-L2: Trace disc bulge. There is mild bilateral facet arthropathy. Thereis no neuroforaminal stenosis. There is no spinal canal stenosis. L2-L3: There is a similar moderate disc bulge. There is moderatebilateral facet arthropathy. Ligamentum flavum infolding has increased from theprior examination. There is mild bilateral neuroforaminal stenosis. There is moderate to severe spinal canal stenosis, slightly increased from priorexam. L3-L4: Interval increase in disc space height loss with increased discbulge since the prior MRI. There is severe facet arthropathy and ligamentumflavum infolding which appears increased from prior examination. There is asmall right synovial cyst which appears contained by the ligamentum flavum. Multiple synovial cysts abutting the spinous process. A small midlinedorsal synovial cyst versus flavum cyst has increased in size now measuring 6 mmand this contributes to the spinal canal stenosis. Mild bilateral neural foraminal stenosis. There is severe spinal canal stenosis which is significantly increased from prior exam. L4-L5: Grade 2 anterolisthesis with uncovering of the disc. There issevere bilateral facet arthropathy. There is severe bilateral neuroforaminal stenosis. There is moderate spinal canal stenosis. L5-S1: Trace disc bulge. Moderate facet arthropathy. Moderate right andmild left foraminal stenosis. No significant spinal canal stenosis. No significant soft tissue abnormality of the field of view. IMPRESSION: Since the prior MRI there has been interval increase in degenerativechanges at L3-L4 which now demonstrates severe spinal canal stenosis, previouslymild. New severe type 1 Modic changes at L3-L4. Redemonstrated grade 2 anterolisthesis of L4 on L5 with severe bilateral foraminal stenosis. THIS IS AN ELECTRONICALLY VERIFIED FINAL REPORT 09/24/2024 1:28 PM - Electronically signed by Poncho Celaya M.D. MM T: Report ID: [id number] Reading Location: [id number] Aristeo Cordova DO [facility] MRI PROCEDURES Final Result * DEXA Axial Skeleton Bone Density Multi Site (09/10/2024 3:58 PM CDT) Anatomical Region Laterality Modality Body N/A Mammography 09/13/2024 6:26 AM CDT Narrative 09/13/2024 6:27 AM CDT EXAM DESCRIPTION: DEXA AXIAL SKELETON BONE DENSITY 1 OR MORE SITES REASON FOR STUDY: 64 y/o year old F with given history of: Postmenopausal status. History prior fracture, parent with hip fracture and drinking 3+ alcoholic drinks per day. 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 CLINICAL INFORMATION: Current height: 62 inches Maximum height: 62 inches Weight: 219 pounds Risk factors: Prior fracture, parent with hip fracture and drinking 3+ alcoholic drinks per day. COMPARISON: None available FINDINGS: AP LUMBAR SPINE L1-L4: Total BMD is 1.125 g/cm2 T-score is 0.7 Measured BMD is thought to be spuriously elevated due to facet arthropathy. Left forearm BMD in the radius 33% is 0.579 g/cm2 T-score is -1.9 FRAX: FRAX tool cannot be utilized as T-Score for mandatory regions required to calculate FRAX is unavailable. IMPRESSION: Low Bone Mass. REFERENCE: Bone mineral density: T-Score: Normal (T-score above or = -1.0) Low bone mass (T-score between -1.0 and -2.5) replaces the previously used term osteopenia Osteoporosis (T-score = or below -2.5) Z-Score: Within the expected range for age (Z-score above -2.0) Below the expected range for age (Z-score is -2.0 or below) Please see below follow up recommendations. Medical evaluation for secondary causes of low bone mineral density may be appropriate. FRAX is a World Health Organization validated fracture risk assessment tool that calculates a person's 10 year probability of a major osteoporosis related fracture and hip fracture. According to the National Osteoporosis Foundation guidelines, postmenopausal women and men age 50 or older with low bone mass and a 10 year probability of a major osteoporosis related fracture = or greater than 20% or a 10 year probability of a hip fracture = or greater than 3% should be considered for pharmacological treatment for the prevention of osteoporosis. For further information, including treatment recommendations, please refer to the 2019 ISCD Official Positions (http://www.iscd.org) and the NOF's Clinician's Guide to Prevention and Treatment of Osteoporosis (http://www.nof.org/professionals/clinical-guidelines) THIS IS AN ELECTRONICALLY VERIFIED FINAL REPORT 09/13/2024 6:27 AM - Electronically signed by Mirela Wynn M.D. TW: TW Report ID: [id number] Reading Location: [id number] Procedure Note Mirela Wynn MD - 09/13/2024 EXAM DESCRIPTION: DEXA AXIAL SKELETON BONE DENSITY 1 OR MORE SITES REASON FOR STUDY: 64 y/o year old F with given history of:Postmenopausal status. History prior fracture, parent with hip fracture and drinking 3+ alcoholic drinks per day. Auto Winder/Model: [employer] A (S/N [id number]) Facility LSC value of 0.022 for the AP spine, 0.027 for the femur, and0.023 for the forearm. CLINICAL INFORMATION: Current height: 62 inches Maximum height: 62 inches Weight: 219 pounds Risk factors: Prior fracture, parent with hip fracture and drinking 3+ alcoholic drinks per day. COMPARISON: None available FINDINGS: AP LUMBAR SPINE L1-L4: Total BMD is 1.125 g/cm2 T-score is 0.7 Measured BMD is thought to be spuriously elevated due to facetarthropathy. Left forearm BMD in the radius 33% is 0.579 g/cm2 T-score is -1.9 FRAX: FRAX tool cannot be utilized as T-Score for mandatory regions required to calculate FRAX is unavailable. IMPRESSION: Low Bone Mass. REFERENCE: Bone mineral density: T-Score: Normal (T-score above or = -1.0) Low bone mass (T-score between -1.0 and -2.5) replaces thepreviously used term osteopenia Osteoporosis (T-score = or below -2.5) Z-Score: Within the expected range for age (Z-score above -2.0) Below the expected range for age (Z-score is -2.0 or below) Please see below follow up recommendations. Medical evaluation forsecondary causes of low bone mineral density may be appropriate. FRAX is a World Health Organization validated fracture risk assessmenttool that calculates a person's 10 year probability of a major osteoporosisrelated fracture and hip fracture. According to the National OsteoporosisFoundation guidelines, postmenopausal women and men age 50 or older with low bonemass and a 10 year probability of a major osteoporosis related fracture = or greater than 20% or a 10 year probability of a hip fracture = or greaterthan 3% should be considered for pharmacological treatment for the preventionof osteoporosis. For further information, including treatment recommendations, please referto the 2019 ISCD Official Positions (http://www.iscd.org) and the NOF's Clinician's Guide to Prevention and Treatment of Osteoporosis (http://www.nof.org/professionals/clinical-guidelines) THIS IS AN ELECTRONICALLY VERIFIED FINAL REPORT 09/13/2024 6:27 AM - Electronically signed by Mirela Wynn M.D. TW: TW Report ID: [id number] Reading Location: [place] [address] Aristeo Cordova DO [facility] DXA PROCEDURES Final Result from Last 3 Months Insurance [facility] [employer] Member Subscriber Plan / Payer (Ef fective 2019-Present) Name:Annette Hickey Relation to Subscriber:Self Name:Annette Hickey Payer ID:[id number] Group ID:[id number] Type:CIG[employer] HMO/PPO Address: [place], [place] [facility] [employer] B[employer]EFIT [employer]AN [facility] [employer] MEDICARE [facility] [employer] Advance Directives For more information, please contact: [phone] Documents on File Type Date Recorded Patient Manager Medicare Marketing Expl anation ADVANCE DIRECTIVE 07/27/2022 11:29 AM POLS T - Phys Order for PT Preferences * Full Code (Latest Code Status on File) Date Activated Date Inactivated Comments 01/28/2024 2:16 PM 01/30/2024 10:11 PM * Full Code Date Activated Date Inactivated Comments 12/12/2023 12:25 PM 12/12/2023 6:09 PM * Full Code Date Activated Date Inactivated Comments 07/26/2023 11:04 PM 07/31/2023 10:27 PM * Full Code Date Activated Date Inactivated Comments 01/10/2023 12:37 PM 01/15/2023 8:15 PM * Full Code Date Activated Date Inactivated Comments 01/05/2023 3:13 PM 01/06/2023 8:05 PM Care Teams Freight Checker Relationship Specialty Start Date End Date Roberto Majano MD [address] [place] [address] PCP - General 11/06/16 Mickie Munroe MD [address] [place] [address] Consulting Physician Interventional Cardiology 09/21/22 Tj Galicia DO [address] [place] [address] [place] [id number] Consulting Physician Orthopedic Surgery 10/26/22 Salina Hassan PA [address] [place] [address] [place] [address] Orthopedic Surgery 01/11/23
--- OUTSIDE RECORDS SUMMARY | 2024-10-24 14:52 | XMS_ITS | Encounter Summary ---
Author Organization 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 Role Phone Unavailable Primary Care Provider Unavailabl e Encounter Details Date Type Department Care Team (Late st Contact Info) Description 08/26/2024 Lab Requisition [facility] - DermPath Lab [address] [place] [address] Marian Saravia MD [address] [facility] [address] [place] [address] Social History Tobacco Use Types Packs/Day Years Used Date Smoking Tobacco: Never Assessed Comments Unknown Sex and Gender Information Value Date Recorded Sex Assigned at Not on file Legal Sex Female 9:40 AM WELDER 2ND SHIFT Gender Identity Not on file Sexual Orientation Not on file documented as of this encounter Plan of Treatment Not on file documented as of this encounter Procedures Procedure Name Priority Date/Time Associated Diagnosis Comments DERMATOPATHOLOGY Routine 08/26/2024 9:20 AM WELDER 2ND SHIFT documented in this encounter Results * DERMATOPATHOLOGY (08/26/2024 9:20 AM WELDER 2ND SHIFT) Case Report Dermatopathology Report Case: [id number] Authorizing Provider: Marian Saravia MD Collected: 08/26/2024 09:20 AM Ordering Location: [facility] Physician [facility] - Received: 08/27/2024 04:51 PM DermPath Lab Pathologist: Luz Marina Ewing MD Specimen: Skin, posterior neck 3:40 PM WELDER 2ND SHIFT DERMATOPATHOLOGY LABORATORY Final Diagnosis Specimen A. SKIN, posterior neck: SPONGIOTIC DERMATITIS WITH EOSINOPHILS (L30.8) (see microscopic description and comment) 3:40 PM WELDER 2ND SHIFT DERMATOPATHOLOGY LABORATORY Clinical History PSO vs AD vs CAD vs Drug 3:40 PM [facility] DERMATOPATHOLOGY LABORATORY Gross Description Specimen A: Received is one formalin filled container labeled with the patient's name and designated posterior neck. The specimen consists of a punch biopsy measuring 4x4x9 mm. Jar 0. 3:40 PM [facility] DERMATOPATHOLOGY LABORATORY Microscopic Description Specimen A. SKIN, posterior neck: There is focal parakeratosis and spongiosis. In the dermis there is a mainly superficial perivascular lymphohistiocytic inflammatory infiltrate with eosinophils. The hematoxylin and eosin stain is reviewed; immunohistochemical and special stains are performed to further characterize this process. Periodic acid-Felisha (PAS) stain fails to highlight fungal elements in the available sections. IL36 does not display overexpression. COMMENT: The histological differential diagnosis includes a contact dermatitis, an eczematous drug eruption, and less likely the urticarial phase of bullous pemphigoid. Clinicopathologic correlation is recommended. 3:40 PM [facility] DERMATOPATHOLOGY LABORATORY Disclaimer An external and internal positive and negative controls are appropriate for the histochemical, immunohistochemical and immunofluorescence stain(s) in this case (if any), except where stated explicitly. The performance characteristics of the stain(s) cited in this report were developed and its performance characteristic determined by the Dermatopathology Laboratory at [facility], directed by Dr. Yamile Hendrickson. These tests need not be, and therefore are not, approved by the [place] Food and Drug Administration. The tests are used for clinical purposes. Billing Codes Specimen Charges Stain Charges 91559 1 [id number] 1 1 3:40 PM [facility] DERMATOPATHOLOGY LABORATORY Embedded Images 3:40 PM [facility] DERMATOPATHOLOGY LABORATORY Pathology/Cytolo gy TISSUE SPECIMEN FROM SKIN / Unknown 08/26/2024 9:20 AM WELDER 2ND SHIFT 08/27/2024 4:51 PM WELDER 2ND SHIFT us Marian Saravia MD LAB - PATHOLOGY/CYTOLOGY ORD ERABLES Final Result DERMATOPATHOLOGY LABORATORY [facility] - Department of Dermatology [address], [address] [phone] documented in this encounter Visit Diagnoses Not on filedocumented in this encounter
--- OUTSIDE RECORDS SUMMARY | 2024-10-24 14:52 | XMS_ITS | Clinical Summary ---
Author Organization [facility] Address [address] [place] [id number] Care Team Providers Care [employer] Name Role Phone Roberto Majano MD Primary Care Provider [phone] Allergies Active Allergy Reactions Criticality Noted Date Comments Morphine Hives 01/14/2022 Penicillins Hives 01/14/2022 Social History Tobacco Use Types Packs/Day Years Used Date Smoking Tobacco: Never Smokeless Tobacco: Never Alcohol Use Standard Drinks/Week Comments Yes 0 (1 standard drink = 0.6 oz pur e alcohol) social Comments Unknown Sex and Gender Information Value Date Recorded Sex Assigned at Not on file Legal Sex Female 7:01 PM CDT Gender Identity Not on file Sexual Orientation Not on file Last Filed Vital Signs Vital Sign Reading Time Taken Comments Blood Pressure 155/88 01/14/2022 10:16 AM CDT Pulse 84 01/14/2022 10:16 AM CDT Temperature 36.6 C (97.9 F) 01/14/2022 10:16 AM CDT Respiratory Rate 16 01/14/2022 10:16 AM CDT Oxygen Saturation 95% 01/14/2022 10:16 AM CDT Inhaled Oxygen Concentration - - Weight 113.4 kg (250 lb) 01/14/2022 10:16 AM CDT Height 167.6 cm (5' 6 ) 01/14/2022 10:16 AM CDT Body Mass Index 40.35 01/14/2022 10:16 AM CDT Plan of Treatment Health Maintenance Due Date Last Done Comments Colorectal Cancer Screening Colonoscopy (10 Years) 1959 Hepatitis C 1977 Mammogram Screening 1999 RSV Immunization or 60+ Years (1 - Risk 60-74 years 1-dose series) 2019 DTaP, Tdap and Td Vaccines (1 - Tdap) 10/22/2021 10/21/2021 Pneumococcal Vaccine: 50+ Years (2 of 2 - PCV) 01/03/2022 01/03/2021 COVID-19 Vaccine (5 - 2023- season) 2024 10/21/2021, 07/06/2021, 09/11/2020, Additional history exists Dexa Scan (General) 2024 Zoster Vaccines Completed 03/25/2021, 01/03/2021 Meningococcal B Vaccine Aged Out No l onger eligible based on patient's age to complete this topic Meningococcal Vaccine Aged Out No shun carolyn eligible based on patient's age to complete this topic RSV Immunizations Under 20 Months Aged Out No longer eligible based on patient's age to complete this topic Insurance [employer] Care Teams [employer] Police Relationship Specialty Start Date End Date Roberto Majano MD [address] [address] PCP - General FAMILY PRACTICE 01/14/22
--- OUTSIDE RECORDS SUMMARY | 2024-10-24 14:52 | XMS_ITS | Clinical Summary ---
Author Organization [facility] Address [address] [place] [address] Care Team Providers Care Commercial Drone Software Developer Name Role Phone Roberto Majano MD Primary Care Prov ider Mickie Munroe MD Unavailable [phone] Tj Galicia DO Unavailable [phone] Salina Hassan Unavailable [phone] Allergies Active Allergy Reactions Criticality Noted Date [...] 1 tablet (50 mcg total) by mouth metal moulder before breakfast 30 tablet 023 Active Additional [...] BY MOUTH TWICE A DAY 180 tablet 024 Active cyanocobalamin (Vitamin B-12) 1,000 mcg/mL injection Inject 1 mL (1,000 mcg total) into the muscle as instructed every 14 (fourteen) days and of month 6 mL 3 024 Active syringe with needle 3 mL 23 x 1 syringe 1 Needle every 14 (fourteen) days 2 each 025 Active Active Problems Problem Noted Date Diagnosed [...] (09/11/2022): Added automatically from request for surgery [id number] Chronic midline back pain, unspecified back loca [...] 07/11/2022 Assessment & Plan (07/12/2022 11:14 AM TOUCH UP PAINTER HAND): Overall controlled with above pain regimen. Assessment & Plan (07/11/2022 6:11 AM TOUCH UP PAINTER HAND): Symptoms fairly controlled with pregabalin 150 mg b.i.d., oxycodone, methocarbamol. Primary insomnia 07/11/2022 Assessment & Plan (07/11/2022 6:14 AM TOUCH UP PAINTER HAND): Continue trazodone nighttime, maintain sleep hygiene. Edema of both legs 07/11/2022 Assessment & Plan (07/12/2022 11:14 AM TOUCH UP PAINTER HAND): Encourage lower extremity elevation and increasing ambulation. We will complete an additional 5 days of Lasix 20 mg daily Assessment & Plan (07/11/2022 6:14 AM TOUCH UP PAINTER HAND): Patient complains of lower extremity edema recently. Will start on Lasix 40 mg daily x5 days, encourage leg elevation, will order Jeferson wrap History of Radha-en-Y gastric bypass 07/11/2022 Assessment & Plan (07/12/2022 11:11 AM TOUCH UP PAINTER HAND): Continue vitamin supplementation with vitamin-D, vitamin B12. Continue omeprazole Assessment & Plan (07/11/2022 6:16 AM TOUCH UP PAINTER HAND): Patient has a history of RYGB. Continue vitamin B12, omeprazole 20 mg b.i.d. Spinal stenosis of lumbar region at multiple lev els 07/01/2022 Assessment & Plan (07/12/2022 11:13 AM TOUCH UP PAINTER HAND): Overall back pain has been stable, patient is participating in therapy. Raymond stable for discharge on 07/14/2022. Follow-up with Neurosurgery as scheduled. Continue pain control with p.r.n. oxycodone, topical Voltaren, Lidoderm, scheduled methocarbamol, scheduled Lyrica. We will arrange home health PT/OT Assessment & Plan (07/11/2022 6:10 AM TOUCH UP PAINTER HAND): Patient presented due to worsening low back [...] 06/29/2022 Assessment & Plan (07/05/2022 8:49 AM TOUCH UP PAINTER HAND): Patient with chronic pain p/w acute on chronic LBP in the setting of recent fall. Pain from a combination spinal stenosis in the L spine and L4 pars interarticularis defect. - Home regimen: Spencer 10-325 Q6 - Pain regimen: Oxycodone 15 [...] SNF Assessment & Plan (07/03/2022 10:05 AM TOUCH UP PAINTER HAND): Patient with chronic pain p/w acute on chronic LBP in the setting of recent fall. Pain from a combination spinal stenosis in the L spine and L4 pars interarticularis defect. -Home regimen: Spencer 10-325 Q6 -Pain regimen: Oxycodone 15 q4 prn + IV dilaudid 0.3 Q4h PRN -> will schedule oxycodone based on symptoms getting aty-yz-lgxdisk when dose is late -Cont Robaxin -cont [...] injection. Assessment & Plan (06/29/2022 4:22 PM TOUCH UP PAINTER HAND): Patient with chronic pain p/w acute on chronic LBP in the setting of recent fall. Suspect lumbar radiculopathy likely 2/2 disc herniation -Home regimen: Spencer 10-325 Q6 -Follows with [facility] in [place] -Given recent fall, obtain L spine MRI -Increase to Oxycodone 10 + IV dilaudid PRN -Cont Robaxin -Add Lyrica 75. Increase as tolerated -Can continue medrol dose pack as start in ED however benefit uncertain -Consider pain management consult pending additional imaging -PT/OT Murmur, cardiac 06/29/2022 Assessment & Plan (07/04/2022 10:05 AM TOUCH UP PAINTER HAND): Murmur heard on exam -Patient denies chest pain, shortness of breath, syncope -TTE showing mild . This should be followed by the patient's pcp as an outpatient Assessment & Plan (07/01/2022 12:06 PM TOUCH UP PAINTER HAND): Murmur heard on exam -Patient denies chest pain, shortness of breath, syncope -TTE showing mild . This should be followed by the patient's pcp as an outpatient Assessment & Plan (06/29/2022 4:19 PM TOUCH UP PAINTER HAND): Murmur heard on exam -Patient denies chest pain, shortness of breath, syncope -TTE to further evaluate Anxiety and depression 06/29/2022 Assessment & Plan (07/12/2022 11:13 AM TOUCH UP PAINTER HAND): Mood has been overall stable, continue BuSpar, Lexapro, Ativan p.r.n., trazodone. Assessment & Plan (07/11/2022 6:13 AM TOUCH UP PAINTER HAND): Contributing factor chronic back/hip pain. Mood controlled with better pain level. Continue BuSpar 15 mg b.i.d., Lexapro 20 mg, Ativan 0.5 mg p.r.n., trazodone Assessment & Plan (07/05/2022 8:47 AM TOUCH UP PAINTER HAND): - Cont home Buspirone 15 mg BID + Lexapro 20 daily Assessment & Plan (06/30/2022 12:29 PM TOUCH UP PAINTER HAND): -Cont home Buspirone + Lexapro 20 Assessment & Plan (06/29/2022 4:20 PM TOUCH UP PAINTER HAND): -Cont home Buspirone + Lexapro 20 Dysphagia 02/03/2020 Overview (02/03/2020): Added automatically from request for surgery [id number] Thiamin deficiency 11/08/2015 Cobalamin deficiency 11/08/2015 Zinc deficiency 11/08/2015 Malabsorption 10/07/2015 Intra-abdominal abscess 01/07/2015 Stenosis of stomach 01/07/2015 Anastomotic leak of stomach 01/07/2015 Edema Pulmonary hypertension Acute heart failure with preserved ejection frac tion Resolved Problems Problem Noted Date Diagnosed Date Resolved Date Nausea with vomiting 12/10/2014 022 Encounters Date Type Department Care Team Description 09/24/2024 8:48 AM CDT - 09/24/2024 11:59 PM CDT Hospital Encounter [facility] Cardiac Testing [address] [place] [address] Nonrheumatic aortic (valve) stenosis Discharge Disposition: Discharge to home or self care 09/24/2024 7:33 AM CDT - 09/24/2024 11:59 PM CDT Hospital Encounter [facility] MRI [address] [place] [address] Spinal stenosis of cervical region; Spinal stenosis of lumbar region, unspecified whether neurogenic claudication present; Osteopenia, unspecified location Discharge Disposition: Discharge to home or self care 09/16/2024 3:15 PM CDT Telemedicine [facility] Neurosurgery [facility] Medical Office Building [address] [place] [address] Aristeo Cordova DO Obesity (BMI 30-39.9) (Primary Dx); Spinal stenosis of cervical region; Spinal stenosis of lumbar region, unspecified whether neurogenic claudication present 09/10/2024 3:40 PM CDT - 09/10/2024 11:59 PM CDT Hospital Encounter [facility] Medical Office Bldg 1 [facility] [address] [facility] [address] [place] [address] Spinal stenosis of cervical region; Spinal stenosis of lumbar region, unspecified whether neurogenic claudication present; Osteopenia, unspecified location Discharge Disposition: Discharge to home or self care 08/25/2024 3:30 PM TOUCH UP PAINTER HAND Therapy [facility] OP Physical Therapy [address] [facility] [address] [place] [address] Spinal stenosis of cervical region; Spinal stenosis of lumbar region, unspecified whether neurogenic claudication present; Osteopenia, unspecified location 08/14/2024 Orders Only [facility] Minimally Invasive Surgery [address] [facility] Medical Office Building [address] [place] [id number] Aristeo Hope MD 08/14/2024 [facility] ([facility]) [facility] Minimally Invasive Surgery [address] [place] [address] Advanced Medicine 12th Floor, [place] [id number] Aristeo Hope MD Med Refill from Last 3 Months Immunizations Immunization Administration Dates Next Due Influenza, Quadrivalent, Spl it, Preservative Free, Intramuscular 03/08/2023,03/25/2021,04/04/2020 Influenza, Unspecified 04/01/2016 Pneumococcal Polysaccharide PPV23 01/03/2021 RSV Vaccine, Pref, Recombina nt, Subunit, Adjuvanted, PF, IM (Arexvy) 04/26/2023 Td, adsorbed 10/21/2021 ZOSTER Recombinant 03/25/2021,01/03/2021 Surgical History Surgery Date Site/Laterality Comments ABSCESS CATHETER INJECTION 01/11/2015 N/A CT GUIDED DRAINAGE PERITONEA L OR RETROPERITONEAL FLUID COLLECTION 01/02/2015 N/A ABSCESS CATHETER INJECTION 01/19/2015 N/A GASTRIC BYPASS 10/30/2014 - 11/29/2014 c/b microperforation, abscess, stricture 01/13 EXPLORATORY LAPAROTOMY 07/02/2015 - 07/01/2016 resection necrotic fat TOTAL KNEE ARTHROPLASTY Bilateral unsure of date ECTOPIC SURGERY 07/02/1995 - 07/01/1996 SECTION 07/02/2000 - 07/01/2001 1993 COLONOSCOPY TONSILLECTOMY as a child TOTAL HIP ARTHROPLASTY 01/10/2023 Left TOTAL HIP ARTHROPLASTY 10/24/2022 Right ESOPHAGOGASTRODUODENOSCOPY 12/12/2023 with biopsy ESOPHAGOGASTRODUODENOSCOPY 07/02/2020 - 07/01/2021 and 2019 Medical History Medical History Date Comments Dysphagia Awareness under anesthesia as a child during tonsil surgery pt woke up CHF (congestive heart failure) (HCC) Heart murmur Vitamin B deficiency Frequency of urination Hypothyroidism Arthritis Sepsis (HCC) following surgic al puncture, required anti-biotics Very poor mobility Dependency on pain medication (HCC) takes oxycodone every 3 hours Vitamin D deficiency DDD (degenerative disc disease), lumbar Scoliosis Anxiety Allergic rhinitis Depression Skin rash seasonal, summer time Wears glasses Teeth missing Uses walker Hyponatremia Cholelithiasis Motion sickness Family History Medical History Relation Name Comments Stroke Mother Anesthesia problems Neg Hx Relation Name Status Comments Mother Social History Tobacco Use Types Packs/Day Years Used Date Smoking Tobacco: Former Cigarettes Q uit: 1991 Smokeless Tobacco: Never Tobacco Cessation:Counseling Given: Not Answered Alcohol Use Standard Drinks/Week Comments No 0 (1 standard drink = 0.6 oz pur e alcohol) [facility] Utilities Answer Date Recorded In the past 12 months has [employer], gas, oil, or water [employer] threatened to shut off services in your [...] often do you attend chur ch or pentecostal services? 1 to 4 times per year 07/27/2023 Do you belong to any clubs o r organizations such as hoahaoism groups, unions, fraternal or athletic groups, or [...] to sleep or slept in a senior care (including now)? No 07/27/2023 Personal Safety Answer Date Recorded Have you ever been in or are you currently in a harmful physical or emotional relationship or is someone making you feel afraid or unsafe? Denies 01/28/2024 Comments No Sex and Gender Information Value Date Recorded Sex Assigned at Not on file Legal Sex Female 12:50 AM TOUCH UP PAINTER HAND Gender Identity Not on file Sexual Orientation Not on file Obstetrics History Last Filed Vital Signs Vital Sign Reading Time Taken Comments Blood Pressure 134/82 01/30/2024 3:10 PM CDT Pulse 71 01/30/2024 3:10 PM CDT Temperature 36.6 C (97.9 F) 01/30/2024 3:10 PM CDT Respiratory Rate 18 01/30/2024 3:10 PM CDT Oxygen Saturation 96% 01/30/2024 3:10 PM CDT Inhaled Oxygen Concentration - - Weight 99.3 kg (219 lb) 07/15/2024 2:30 PM TOUCH UP PAINTER HAND Height 165.1 cm (5' 5 ) 07/15/2024 2:30 PM TOUCH UP PAINTER HAND Body Mass Index 36.44 07/15/2024 2:30 PM TOUCH UP PAINTER HAND Plan of Treatment Health Maintenance Due Date Last Done Comments Breast Cancer Screening-Mammogram 1959 Cervical Cancer Screening 1959 Colon Cancer Screening-Colonoscopy 1959 Depression Screening 1959 Hepatitis C Screening 1959 Hepatitis B Screening 1977 DTaP/Tdap/Td Vaccine (1 - Tdap) 10/22/2021 Pneumococcal vaccine 65+ (2 of 2 - PCV) 01/03/2022 01/03/2021 Covid-19 Vaccine (2023-2 5 season) 2024 04/26/2023, 10/21/2021, 07/06/2021, Additional history exists Well Visit 65+ 2024 Fall Risk Assessment 01/29/2025 01/30/2024 Influenza Vaccine (Season Ended) 2025 03/08/2023, 03/25/2021, 04/04/2020, Additional history exists Osteoporosis Screening-Bone Density Scan 09/10/2026 09/10/2024 Zoster Vaccine Completed 03/25/2021, 01/03/2021 Medical Devices Implanted Type Area Pet Feeder Device Identifier Shelf Expiration Date Model / Serial / Lot Arthroplasty Bilater al: Knee Description:Joseph TKR DepBOS [employer] Bowie 52mm Sector Hip Shell Acetabular Gription Sterile Latex Free [id number] - [id number] Implanted:Qty: 1 on 10/24/2022 by Tj Galicia DO at [facility] Right: Hip [employer] [id number] 07/01/2032 [id number] / / [id number] [employer] Bowie 6.5mm 30mm Acetabular Cancellous Screw Bone Revision 1217-500 - [id number] Implanted:Qty: 1 on 10/24/2022 by Tj Galicia DO at [facility] Right: Hip [employer] [id number] 07/01/2032500 / / [id number] [employer] Liner Aetabular Cup Hip Bowie Dm 52 45 [id number] - [id number] Implanted:Qty: 1 on 10/24/2022 by Tj Galicia DO at [facility] Right: Hip [employer] [id number] 07/01/2032 [id number] / / [id number] [employer] Articul/Bishnu 22.225mm Cementless Hip +7mm /14 Standard Taper Latex Free [id number] - [id number] Implanted:Qty: 1 on 10/24/2022 by Tj Galicia DO at [facility] Right: Hip [employer] [id number] 10/29/2025 [id number] / / [id number] [employer] Actis 105mm Collar Hip 5 Standard Offset Stem Femoral 1010-11-050 - [id number] Implanted:Qty: 1 on 10/24/2022 by Tj Galicia DO at [facility] Right: Hip [employer] [id number] 12/30/2031050 / / [id number] [employer] Liner Acetabular Hip Bi Mentum 34j55gj Polyethylene [id number] - [id number] Implanted:Qty: 1 on 10/24/2022 by Tj Galicia DO at [facility] Right: Hip [employer] 10/29/2025 [id number] / / [id number] [employer] Bowie 6.5mm 25mm Acetabular Cancellous Screw Bone Sterile 1217--500 - [id number] Implanted:Qty: 1 on 01/10/2023 by Tj Galicia DO at [facility] Left: Hip [employer] [id number] 07/01/2032 1217-25-500 / / [id number] [employer] Bowie 6.5mm 40mm Acetabular Cancellous Screw Bone Sterile [id number] - [id number] Implanted:Qty: 1 on 01/10/2023 by Tj Galicia DO at [facility] Left: Hip [employer] [id number] 07/01/2032 [id number] / / [id number] [employer] Liner Aetabular Cup Hip Bowie Dm 52 45 [id number] - [id number] Implanted:Qty: 1 on 01/10/2023 by Tj Galicia DO at [facility] Left: Hip [employer] [id number] 07/01/2032 [id number] / / [id number] [employer] Actis 105mm Collar Hip 5 Standard Offset Stem Femoral 1010-11-050 - [id number] Implanted:Qty: 1 on 01/10/2023 by Tj Galicia DO at [facility] Left: Hip [employer] [id number] 12/30/2031 1010-11-050 / / [id number] [employer] Articul/Bishnu 22.225mm Cementless Hip +4mm /14 Standard Taper Latex Free [id number] - [id number] Implanted:Qty: 1 on 01/10/2023 by jT Galicia DO at [facility] Left: Hip [employer] [id number] 05/01/2027 [id number] / / [id number] [employer] Liner Acetabular Hip Bi Mentum 72q66ma Polyethylene [id number] - [id number] Implanted:Qty: 1 on 01/10/2023 by Tj Galicia DO at [facility] Left: Hip [employer] 07/01/2025 [id number] / / [id number] [employer] Bowie 52mm Sector Hip Shell Acetabular Gription Sterile Latex Free [id number] - [id number] Implanted:Qty: 1 on 01/10/2023 by Tj Galicia DO at [facility] Left: Hip [employer] [id number] 09/29/2032 [id number] / / [id number] Explanted Type Area Pet Feeder Device Identifier Shelf Expiration Date Model / Serial / Lot [employer] Bowie 6.5mm 25mm Acetabular Cancellous Screw Bone Sterile 1217-25-500 - [id number] Explanted:Qty: 1 on 10/24/2022 at [facility] Right: Hip [employer] [id number] 07/01/2032 1217-25-5 00 / / [id number] Procedures Procedure Name Priority Date/Time Associated Diagnosis [...] AM Ht(Inch): 65 Wt(Lb): 219 BSA: 2.13 Business Systems Lead: YI Craft Order Provider: ELVIA MUNROECHUY Heart Rate: 95 BMI: 36.44 BP: 134 / 82 Ref Provider: MICKIE MUNROE PROCEDURES: Echocardiographic Report: ([id number]) Transthoracic complete echo, 2D, spectral and tissue [...] [ 3.50 - 5.70 ] AV Peak Piol 2.93 m/s LVIDs 2D 3.04 cm [ [...] AM Ht(Inch): 65 Wt(Lb): 219 BSA: 2.13 Business Systems Lead: YI Craft Order Provider: MICKIE MUNROE Heart Rate: 95 BMI: 36.44 BP: 134 / 82 Ref Provider: MICKIE MUNROE PROCEDURES: Echocardiographic Report: ([id number]) Transthoracic complete echo, 2D,spectral and tissue Doppler, [...] LA Volume BP 81.00 ml MV Decel Qelw894.00 msec LA Volume Index 38.03 ml/m2 [ [...] Poncho Celaya M.D. MM T: Report ID: [id number] Reading Location: [id number] Procedure Note Poncho Celaya MD - 09/24/2024 [...] Poncho Celaya M.D. MM T: Report ID: [id number] Reading Location: [place] [address] Aristeo Cordova DO [facility] [place] PROCED[place] Final Result * DEXA Axial [...] and drinking 3+ alcoholic drinks per day. Pet Feeder/Model: [employer] Horizon A (S/N [id number]) Facility LSC value of 0.022 for the [...] Mirela Wynn M.D. TW: TW Report ID: [id number] Reading Location: [id number] Procedure Note Mirela Wynn MD - 09/13/2024 EXAM DESCRIPTION: DEXA AXIAL SKELETON BONE DENSITY 1 OR MORE SITES REASON FOR STUDY: 64 y/o year old F with given history of:Postmenopausal status. History prior fracture, parent with hip fracture and drinking 3+ alcoholic drinks per day. Pet Feeder/Model: [employer] A (S/N [id number]) Facility LSC value of 0.022 for the [...] Electronically signed by Mirela Wynn M.D. TW: REFUGIO Report ID: [id number] Reading Location: [place] [address] Aristeo Cordova DO IM DXA PROCEDURES Final Result from Last 3 Months Insurance [facility] [employer] [facility] [employer] [employer] MEDICARE [facility] [employer] Advance Directives For more information, please contact: [phone] Documents on File Type Date Recorded Patient Personnel Assistant Expl anation ADVANCE DIRECTIVE 07/27/2022 11:29 AM [...] 3:13 PM 01/06/2023 8:05 PM Care Teams Commercial Drone Software Developer Relationship Specialty Start Date End Date Roberto Majano MD [address] [place] [address] PCP - General 5/8/17 Mickie Munroe MD [address] [place] [address] Consulting Physician Interventional Cardiology 09/21/22 Tj Galicia DO [address] [facility] [address] [place] [address] [place] [address] Consulting Physician Orthopedic Surgery 10/26/22 Salina Hassan PA [address] [facility] [address] [place] [address] [place] [id number] Orthopedic Surgery 01/11/23
--- OUTSIDE RECORDS SUMMARY | 2024-10-24 14:53 | XMS_ITS | Clinical Summary ---
Author Organization [facility] Address [address] [place] [address] Care Team Providers Care Biztalk Administrator Name Role Phone Unavailable Primary Care Provider Unavailabl e Source Comments [facility],non-owned Affiliates and Associated Physician Practices is amultiple site organization consisting of ambulatory clinics and hospital sitesin [place], [place], [place] and [place]. This disclosure is being madepursuant to the Care Everywhere program and may not contain all information available regarding this patient. Last updated 18.[facility] Encounters Date Type Department Care Team Description 08/26/2024 Lab Requisition [facility] - DermPath Lab [address] [place] [id number] Marian Saravia MD from Last 3 Months Social History Tobacco Use Types Packs/Day Years Used Date Smoking Tobacco: Never Assessed Comments Unknown Sex and Gender Information Value Date Recorded Sex Assigned at Not on file Legal Sex Female 9:40 AM ARTILLERY OR [employer] OBSERVER Gender Identity Not on file Sexual Orientation Not on file Plan of Treatment Health Maintenance Due Date Last Done Comments BONE DENSITY TESTING 1959 COLOGUARD (AGES 45-75) - COL ON CA SCREENING 1959 COLON MONITORING 1959 COLONOSCOPY - COLON CA SCREENING 1959 CT COLONOGRAPHY - COLON CA SCREENING 1959 Colorectal Cancer Screening 1959 FIT - COLON CA SCREENING 1959 FLEX SIG - COLON CA SCREENING 1959 LIPID TESTING 1959 MAMMOGRAM 1959 MEDICARE AWV 12 MONTHS 1959 PAP SMEAR 1959 HIV SCREENING 1974 HEPATITIS C SCREENING 07/29/1977 DTAP/TDAP/TD VACCINES (1 - Tdap) 1978 PNEUMOCOCCAL VACCINE 50+ (1 of 1 - PCV) 2009 ZOSTER VACCINE (1 of 2) 2009 COVID-19 VACCINE (2023-2 5 season) 2024 DEPRESSION SCREENING 07/02/2024 INFLUENZA VACCINE (Season Ended) 2025 Respiratory Syncytial Virus (RSV) Vaccine Pt: or over 60 yrs (1 - 1-dose 75+ series) 2034 HEPATITIS B VACCINE Aged Out No longe r eligible based on patient's age to complete this topic HIB VACCINE Aged Out No longer eligi ble based on patient's age to complete this topic HPV VACCINE Aged Out No longer eligi ble based on patient's age to complete this topic MENINGOCOCCAL (Group B) VACC INE SHARED DECISION-MAKING Aged Out No longer eligibl e based on patient's age to complete this topic MENINGOCOCCAL GROUPS A/C/Y/W VACCINE Aged Out No longer eligible b ased on patient's age to complete this topic Procedures Procedure Name Priority Date/Time Associated Diagnosis Comments DERMATOPATHOLOGY Routine 08/26/2024 9:20 AM ARTILLERY OR [employer] OBSERVER from Last 3 Months Results * DERMATOPATHOLOGY (08/26/2024 9:20 AM ARTILLERY OR [employer] OBSERVER) Case Report Dermatopathology Report Case: [id number] Authorizing Provider: Marian Saravia MD Collected: 08/26/2024 09:20 AM Ordering Location: [facility] - Received: 08/27/2024 04:51 PM DermPath Lab Pathologist: Luz Marina Ewing MD Specimen: Skin, posterior neck 3:40 PM ARTILLERY OR [employer] OBSERVER DERMATOPATHOLOGY LABORATORY Final Diagnosis Specimen A. SKIN, posterior neck: SPONGIOTIC DERMATITIS WITH EOSINOPHILS (L30.8) (see microscopic description and comment) 3:40 PM [employer]ILLERY OR [employer] OBSERVER DERMATOPATHOLOGY LABORATORY Clinical History PSO vs AD vs CAD vs Drug 3:40 PM [employer]ILLERY [employer] OBSERVER DERMATOPATHOLOGY LABORATORY Gross Description Specimen A: Received is one formalin filled container labeled with the patient's name and designated posterior neck. The specimen consists of a punch biopsy measuring 4x4x9 mm. Jar 0. 3:40 PM ARTILLERY [employer] OBSERVER DERMATOPATHOLOGY LABORATORY Microscopic Description Specimen A. SKIN, [...] pemphigoid. Clinicopathologic correlation is recommended. 3:40 PM [facility] DERMATOPATHOLOGY LABORATORY Disclaimer An external and internal positive and negative controls are appropriate for the histochemical, immunohistochemical and immunofluorescence stain(s) in this case (if any), except where stated explicitly. The performance characteristics of the stain(s) cited in this report were developed and its performance characteristic determined by the Dermatopathology Laboratory at [facility], directed by Dr. Yamile Hendrickson. These tests need not be, and therefore are not, approved by the [place] Food and Drug Administration. The tests are used for clinical purposes. Billing Codes Specimen Charges Stain Charges 21164 1 70415 44347 1 1 5 3:40 PM [employer]ILLERY [employer] OBSERVER DERMATOPATHOLOGY LABORATORY Embedded Images 3:40 PM [facility] DERMATOPATHOLOGY LABORATORY Pathology/Cytolo gy TISSUE SPECIMEN FROM SKIN / Unknown 08/26/2024 9:20 AM ARTILLERY OR [employer] OBSERVER 08/27/2024 4:51 PM [employer] OBS[employer]ER Marian Saravia MD LAB - PATHOLOGY/CYTOLOGY ORD ERABLES Final Result DERMATOPATHOLOGY LABORATORY [facility] - Department of Dermatology [facility] Medicine [address] [place] [address], [address] [place] [address], [facility] [phone] from Last 3 Months Insurance [employer] [facility]
--- OUTSIDE RECORDS SUMMARY | 2024-10-24 14:53 | XMS_ITS | Clinical Summary ---
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 Active venlafaxine (EFFEXOR) 75 mg tablet Take 75 mg by mouth 2 times daily. Active LORazepam (ATIVAN) 1 mg tablet Take 1 mg by mouth 3 times daily as needed for Anxiety. Active Cyanocobalamin 500 mcg/spray [place], Non-Aerosol every 7 days. Acti ve aspirin (OJ CHEWABLE) 81 mg Tablet, Chewable Take 81 mg by mouth daily. Active pediatric multivitamins Tablet, Chewable Take 1 Tablet by mouth daily. Active LORazepam (ATIVAN) 1 mg tablet Take 1 Tablet (1 mg) by mouth every 6 hours as needed for Anxiety. 20 Tablet None 6 Active albuterol HFA 90 mcg inhaler Take 2 Puffs by inhalation every 4 hours as needed for Shortness of Breath or Wheezing. 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 Gender Identity Not on file Sexual Orientation Not on file Last Filed Vital Signs Vital Sign Reading Time Taken Comments Blood Pressure 115/70 10/15/2015 1:00 PM CDT Pulse - - Temperature 36.6 C (97.8 F) 10/15/2015 11:07 AM CDT Respiratory Rate 18 10/15/2015 1:00 PM CDT Oxygen Saturation 96% 10/15/2015 1:00 PM CDT Inhaled Oxygen Concentration - - Weight 93 kg (205 lb) 10/15/2015 11:07 AM CDT Height 167.6 cm (5' 6 ) 10/15/2015 11:07 AM CDT Body Mass Index 33.09 10/15/2015 11:07 AM CDT Plan of Treatment Health Maintenance Due Date Last Done Comments DTAP/TDAP/TD VACCINES (1 - Tdap) 1978 BREAST CANCER SCREENING 1999 COLORECTAL SCREENING 2004 Colorectal Cancer Screening 2004 FIT-DNA Q 3 years 2004 FIT/FOBT Q 1 year 2004 Flex Sig/CT Colonography Q 5 years 2004 PNEUMOCOCCAL VACCINE 50+ YEA RS (2 of 2 - PCV) 01/03/2022 01/03/2021 INFLUENZA VACCINE (#1) 2024 03/25/2021, 2019 OSTEOPOROSIS SCREENING 2024 RSV VACCINE (60+ or ) (1 - 1-dose 75+ series) 2034 ZOSTER VACCINE Completed 03/25/2021, 01/03/2021 Insurance
--- OUTSIDE RECORDS SUMMARY | 2024-10-24 14:53 | XMS_ITS | Clinical Summary ---
Author Organization [facility] Care Team Providers Care Registry Np Name Role Phone Unavailable Primary Care Provider Unavailabl e Social History Tobacco Use Types Packs/Day Years Used Date Smoking Tobacco: Never Assessed Comments Unknown Sex and Gender Information Value Date Recorded Sex Assigned at Not on file Legal Sex Female 9:35 PM CDT Gender Identity Not on file Sexual Orientation Not on file Plan of Treatment Health Maintenance Due Date Last Done Comments Hepatitis C Virus (HCV) Screening 1959 TdaP Immunization 1959 Pap Smear 1980 Cervical Cancer Screening (CCS) 1989 HPV/Cotest 1989 Colonoscopy 2004 Colorectal Cancer Screening 2004 Cologuard 2009 Immunochemical Fecal Occult Blood 2009 Mammogram 2009 Pneumococcal Immunization (5 0+ years) (1 of 1 - PCV) 2009 Zoster Immunization (1 of 2) 2009 Influenza Immunization (#1) 2024 04/04/2020 SARS-COV-2 Immunization (2023-25 season) 2024 Respiratory Syncytial Virus (RSV) Immunization (Adult) (1 - 1-dose 75+ series) 2034 Hepatitis B Immunization Aged Out No longer eligible based on patient's age to complete this topic Meningococcal Immunization (ACWY) Aged Out No longer eligible based on patient's age to complete this topic Pneumococcal Immunization Combined Aged Out No longer eligible based on patient's age to complete this topic Rotavirus Immunization Aged Out No lo nger eligible based on patient's age to complete this topic
--- OUTSIDE RECORDS SUMMARY | 2024-10-24 14:53 | XMS_ITS | Encounter Summary ---
Author Organization [facility] Address 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
== END 2024-10-24 14:47 | disposition home or self-care (01) ==
LOC: ANHIMG 14:48
PROVIDERS: PCP Family Medicine Adolescent Medicine; Visit Provider Family Medicine Adolescent Medicine
DX: Z12.31 Encounter for screening mammogram for malignant neoplasm of breast (principal)
CPT/HCPCS: 77063; 77067